=== PATIENT | male | born 1945 | race Two or more races ===

== ENCOUNTER 2018-05-19 12:30 | Emergency (ER) | payer OTHER ==
[~2018-05-19] VITALS: Ht 170.2 cm; Wt 76.7 kg
[2018-05-19] MEDS ORDERED: FORTAMET500 MG (13:34)
[2018-05-19] MEDS ORDERED: LISINOPRIL10 MG (13:35)
[2018-05-19] MEDS ORDERED: [UNRECOGNIZED DRUG - OTHER] (13:35)
[2018-05-19] MEDS ORDERED: ATORVASTATIN CA40 MG (13:36)
[2018-05-19] MEDS ORDERED: TAMS0.4C (13:40)
== END 2018-05-19 16:01 | disposition home or self-care (01) ==
LOC: ER 12:30
DX: S40.012A Contusion of left shoulder, initial encounter (principal); S50.02XA Contusion of left elbow, initial encounter; S00.11XA Contusion of right eyelid and periocular area, initial encounter; W11.XXXA Fall on and from ladder, initial encounter; Y93.89 Activity, other specified; Y92.018 Other place in single-family (private) house as the place of occurrence of the external cause; Y99.8 Other external cause status